=== PATIENT | female | born 1985 | race Caucasian/White ===

== ENCOUNTER 2021-09-22 11:05 | Emergency (ER) | payer BC, SELFPAY ==
--- NOTE | ~2021-09-22 | US_ITS ---
US OB <=14 wk fetus w TV DATE: 09/22/2021 12:14 INDICATION: Vaginal bleeding and cramping in 6 week gravid patient TECHNIQUE: Real-time imaging via transabdominal and transvaginal approaches COMPARISON: None FINDINGS: The uterus measures 9.6 and is height, 4.5 cm anteroposterior and 5.8 cm transverse dimensi on. The endometrial echo complex measures up to 18 mm AP dimension. No apparent intrauterine gestatio nal sac is noted. Right ovary 2.7 x 1.3 x 1.6 cm. Left ovary 2.3 x 1.5 x 1.5 cm. No pelvic mass lesion or abnormal pelv ic fluid collection is noted. IMPRESSION: No normal intrauterine gestational sac is identified. AP dimension of the central endometrial complex measures up to 18 mm, possibly due to bleeding/aborti on given the history of 6 weeks gestation. Differential diagnosis for prominent endometrial echo incl udes endometrial proliferation associated with an ectopic . Clinical correlation and perhaps follow-up beta hCG determinations and possible follow-up pelvic ultr asound may be of benefit Reviewed, dictated and finalized at [facility] Reviewed, dictated and finalized at [facility]. IMPRESSION: No normal intrauterine gestational sac is identified. AP dimension of the central endometrial complex measures up to 18 mm, possibly due to bleeding/ given the history of 6 weeks gestation. Differential d iagnosis for prominent endometrial echo includes endometrial proliferation asso ciated with an ectopic . Clinical correlation and perhaps follow-up beta hCG determinations and possible follow-up pelvic ultrasound may be of benefit
[2021-09-22 11:13] VITALS: BP 114/77; PULSE 77; RESP 14; TEMP 37.2; O2SAT 98
--- NOTE | 2021-09-22 11:25 | ED.GENADULT ---
HPI - General Adult General Chief complaint: Vaginal Bleeding Stated complaint: Vaginal Bleeding, 7 Weeks Preg Time Seen by Provider: 09/22/21 11:09 Source: patient, family and RN notes reviewed Mode of arrival: ambulatory Limitations: no limitations History of Present Illness HPI narrative: 36-year-old female that is G3, P2 who believes she is approximately 6 weeks presenting to the emergency department for evaluation of vaginal bleeding and lower abdominal cramping. Patient states that she has not yet had follow-up with her [facility], Dr Baugh. Patient first noticed the vaginal bleeding this morning. Patient does have associated lower abdominal cramping. Patient denies any prior abdominal surgical history. Patient denies any pain with urination. Related Data Home Medications Medication Instructions Recorded Confirmed paroxetine HCl 10 mg tablet 10 mg PO DAILY 07/23/21 07/23/21 Allergies Allergy/AdvReac Type Severity Reaction Status Date / Time amoxicillin Allergy Intermediate n/a Verified 07/23/21 16:08 strawberry Allergy Unknown Hives / Verified 07/23/21 16:08 Red Face Review of Systems Review of Systems: CONSTITUTIONAL: Denies fever, chills, or sweats. EYES: Denies visual changes, redness, or discharge. ENT: Denies rhinorrhea, congestion, sore throat, or otalgia. CARDIOVASCULAR: Denies chest pain, palpitations, or edema. RESPIRATORY: Denies cough or dyspnea. GASTROINTESTINAL: See HPI GENITOURINARY: See HPI SKIN: Denies rash or itching. MUSCULOSKELETAL: Denies back pain, joint pain, or myalgia. NEUROLOGIC: Denies headache, numbness, or weakness. [facility] Past Medical History Medical History Abnormal Pap smear of cervix 04/12/2018 +hpv, 06/12/2020 ascus-hpv Anemia Anxiety Depression Gestational hypertension History of breast problem Toxic shock syndrome at 16 Surgical History Surgical History History of bilateral breast reduction surgery 02/22/15 Family History Family History Grandparent Lung cancer paternal grandmother paternal grandfather Acute myocardial infarction maternal grandfather Father Skin cancer Social History Social History (Updated 07/23/21 @ 16:11 by Dejah Quinones, [facility]) Smoking status: Never smoker Alcohol intake: never Substance use: current Substance use type: marijuana Other substance usage details: occasional 1-2 times month EDIBLES Additional living arrangements comments: spouse Additional occupation/education comments: stay at home mother Gender identity (if verbalized by the patient): Female Sexual Orientation (if Verbalized by the Patient): Straight or Heterosexual Exam Narrative: APPEARANCE: Well appearing, no pain, no distress, well-nourished. HEAD: normocephalic, atraumatic. EYES: PERRLA/EOMI, conjunctivae clear. NOSE: Normal no drainage THROAT: Pharynx clear, no exudate. NECK: Supple. No adenopathy, no masses. RESPIRATORY: Airway patent, respirations nonlabored. Clear to auscultation bilaterally, no rales, rhonchi, wheezing. CARDIOVASCULAR: Regular rate and rhythm without murmurs rubs or gallops. ABDOMINAL: Mild suprapubic tenderness to palpation. MUSCULOSKELETAL: Moves all extremities. Strength/ROM intact, No edema, No calf tenderness. NEURO: Alert. Cranial nerves II through XII intact. Grossly intact SKIN: Warm, dry. Normal Color SPECULUM: Clots and blood within the vaginal vault. No active refilling. No hemorrhage. Course Course Emergency Course: Patient's pain is comparable to period cramping per the patient. Patient is declining any medications for pain control at this time. Patient's Rh factor is positive. No RhoGAM will be given. Patient was updated on the results of the ultrasound and [facility] [facility] consultation. All questions and c
[2021-09-22 11:42] LABS: Basophils Percent Auto 0.2 % (0.2-1.2); Eosinophils Absolute Auto 0.1 K/mm3 (0-0.3); Eosinophils Percent Auto 0.7 % (0-4.4); Hematocrit 38.1 % (37.0-47.0); Hemoglobin 12.6 g/dL (12.0-15.0); Immature Granulocyte Absolute 0.03 K/mm3 (0.00-0.031); Immature Granulocyte Percent A 0.4 % (0-0.5); Lymphocytes Absolute Auto 1.89 K/mm3 (0.9-3.2); Lymphocytes Percent Auto 22.6 % (18.3-44.2); Mean Corpuscular HGB Conc 33.1 g/dl (32-36); Mean Corpuscular Hemoglobin 32.3 pg (26-34); Mean Corpuscular Volume 97.7 fl (80-100); Mean Platelet Volume 9.2 fl (7.4-10.4); Monocytes Absolute Auto 0.5 K/mm3 (0.1-0.6); Monocytes Percent Auto 6.3 % (2.6-8.5); Neutrophils Absolute Auto 5.8 K/mm3 (1.3-6.7); Neutrophils Percent Auto 69.8 % (45.5-73.1); Platelet Count Result 332 k/mm3 (150-375); Red Cell Distribution Width 13.1 % (11.5-14.5); White Blood Count 8.4 K/mm3 (4.5-10.0)
--- NOTE | 2021-09-22 11:59 | PC.NURSE ---
pt in ultrasound.
[2021-09-22] MEDS: SODIUM CHLORIDE 0.9% IV 1,000 ML 999 ML IV CONT (12:13)
[2021-09-22 13:54] VITALS: BP 118/67; PULSE 82; RESP 13; O2SAT 98
== END 2021-09-22 13:57 | disposition home or self-care (01) ==
PROVIDERS: Physician Assistant; Emergency Provider Emergency Medicine; PCP Internal Medicine
DX: O20.9 Hemorrhage in early pregnancy, unspecified (principal); O99.341 Other mental disorders complicating pregnancy, first trimester; F32.A Depression, unspecified; F41.9 Anxiety disorder, unspecified; Z3A.01 Less than 8 weeks gestation of pregnancy; Z88.0 Allergy status to penicillin; Z91.018 Allergy to other foods; Z86.2 Personal history of diseases of the blood and blood-forming organs and certain disorders involving the immune mechanism
CPT/HCPCS: 36415; 76801; 76817; 84702; 85025; 85461; 96360; 99284; J7030

== ENCOUNTER 2021-09-26 10:38 | Outpatient (CLI) | payer BC, SELFPAY ==
[2021-09-26 11:23] LABS: Beta HCG Quantitative 164.59 mIU/ML
== END 2021-09-26 10:39 | disposition home or self-care (01) ==
LOC: ANHLAB 10:39
PROVIDERS: PCP Internal Medicine; Visit Provider Obstetrics & Gynecology
DX: O02.1 Missed abortion (principal); Z3A.00 Weeks of gestation of pregnancy not specified
CPT/HCPCS: 36415; 84702

== ENCOUNTER 2021-12-17 09:50 | Outpatient (CLI) | payer BC, SELFPAY | END 2021-12-17 09:51 | disposition home or self-care (01) | LOC: ANHLAB 09:51 | PROVIDERS: PCP Internal Medicine; Visit Provider Obstetrics & Gynecology | DX: N91.2 Amenorrhea, unspecified (principal) | CPT/HCPCS: 36415; 84702 ==

== ENCOUNTER 2021-12-19 11:14 | Outpatient (CLI) | payer BC, SELFPAY | END 2021-12-19 11:15 | disposition home or self-care (01) | PROVIDERS: Obstetrics & Gynecology; PCP Internal Medicine; Visit Provider Obstetrics & Gynecology | DX: O02.1 Missed abortion (principal); Z3A.00 Weeks of gestation of pregnancy not specified | CPT/HCPCS: 36415; 84702 ==

== ENCOUNTER 2022-02-06 10:21 | Outpatient (CLI) | payer BC, SELFPAY ==
[2022-02-06 10:55] LABS: Basophils Percent Auto 0.2 % (0.2-1.2); Eosinophils Absolute Auto 0.1 K/mm3 (0-0.3); Eosinophils Percent Auto 0.8 % (0-4.4); Hematocrit 38.4 % (37.0-47.0); Immature Granulocyte Absolute 0.02 K/mm3 (0.00-0.031); Immature Granulocyte Percent A 0.2 % (0-0.5); Lymphocytes Absolute Auto 1.86 K/mm3 (0.9-3.2); Lymphocytes Percent Auto 22.2 % (18.3-44.2); Mean Corpuscular HGB Conc 33.9 g/dl (32-36); Mean Corpuscular Volume 94.6 fl (80-100); Mean Platelet Volume 8.9 fl (7.4-10.4); Monocytes Absolute Auto 0.4 K/mm3 (0.1-0.6); Monocytes Percent Auto 5.1 % (2.6-8.5); Neutrophils Percent Auto 71.5 % (45.5-73.1); Platelet Count Result 311 k/mm3 (150-375); Red Blood Count 4.06 M/mm3 (4.2-5.4); Red Cell Distribution Width 12.9 % (11.5-14.5); White Blood Count 8.4 K/mm3 (4.5-10.0)
[2022-02-06 11:45] LABS: HIV 1/2 Ab P24 Ag Result Negative (Negative)
[2022-02-06 12:23] LABS: Hepatitis B Surface Antigen Negative (Negative); Rubella IgG Antibody 14.1 IU/ML
[2022-02-06 15:56] LABS: Rapid Plasma Reagin Non-Reactive (NonReactive)
== END 2022-02-06 10:22 | disposition home or self-care (01) ==
LOC: ANHLAB 10:25
PROVIDERS: PCP Internal Medicine; Visit Provider Obstetrics & Gynecology
DX: Z34.90 Encounter for supervision of normal pregnancy, unspecified, unspecified trimester (principal)
CPT/HCPCS: 36415; 85025; 86592; 86644; 86703; 86747; 86762; 86787; 86850; 86900; 86901; 87077; 87086; 87088; 87340; G0432

== ENCOUNTER 2022-06-24 09:03 | Outpatient (CLI) | payer BC, SELFPAY ==
[2022-06-24 10:33] LABS: Basophils Percent Auto 0.2 % (0.2-1.2); Eosinophils Percent Auto 0.3 % (0-4.4); Hematocrit 38.5 % (37.0-47.0); Hemoglobin 12.8 g/dL (12.0-15.0); Immature Granulocyte Absolute 0.05 K/mm3 (0.00-0.031); Immature Granulocyte Percent A 0.5 % (0-0.5); Lymphocytes Absolute Auto 1.75 K/mm3 (0.9-3.2); Lymphocytes Percent Auto 18.6 % (18.3-44.2); Mean Corpuscular HGB Conc 33.2 g/dl (32-36); Mean Corpuscular Hemoglobin 32.6 pg (26-34); Mean Platelet Volume 9.2 fl (7.4-10.4); Monocytes Absolute Auto 0.6 K/mm3 (0.1-0.6); Monocytes Percent Auto 6.7 % (2.6-8.5); Neutrophils Absolute Auto 6.9 K/mm3 (1.3-6.7); Neutrophils Percent Auto 73.7 % (45.5-73.1); Platelet Count Result 310 k/mm3 (150-375); Red Blood Count 3.93 M/mm3 (4.2-5.4); Red Cell Distribution Width 12.9 % (11.5-14.5); White Blood Count 9.4 K/mm3 (4.5-10.0)
[2022-06-24 10:42] LABS: Glucose 1 Hour PP 50gm Dose 101 mg/dL
[2022-06-24 11:24] LABS: HIV 1/2 Ab P24 Ag Result Negative (Negative)
== END 2022-06-24 09:04 | disposition home or self-care (01) ==
LOC: ANHLAB 09:04
PROVIDERS: PCP Internal Medicine; Visit Provider Obstetrics & Gynecology
DX: Z34.90 Encounter for supervision of normal pregnancy, unspecified, unspecified trimester (principal)
CPT/HCPCS: 36415; 82947; 85025; 86703; G0432

== ENCOUNTER 2022-08-21 17:59 | Inpatient (IN) | payer BC, SELFPAY ==
[2022-08-21] VITALS (9 sets, daily range): BP systolic 125–143; BP diastolic 80–95; PULSE 68–94; BMI 34.4
[2022-08-21 19:08] LABS: Basophils Percent Auto 0.2 % (0.2-1.2); Eosinophils Absolute Auto 0.1 K/mm3 (0-0.3); Eosinophils Percent Auto 0.7 % (0-4.4); Hemoglobin 13.2 g/dL (12.0-15.0); Immature Granulocyte Absolute 0.03 K/mm3 (0.00-0.031); Immature Granulocyte Percent A 0.3 % (0-0.5); Lymphocytes Absolute Auto 1.89 K/mm3 (0.9-3.2); Lymphocytes Percent Auto 21.1 % (18.3-44.2); Mean Corpuscular HGB Conc 34.7 g/dl (32-36); Mean Corpuscular Hemoglobin 33.7 pg (26-34); Mean Corpuscular Volume 96.9 fl (80-100); Mean Platelet Volume 9.8 fl (7.4-10.4); Monocytes Absolute Auto 0.7 K/mm3 (0.1-0.6); Monocytes Percent Auto 7.7 % (2.6-8.5); Neutrophils Absolute Auto 6.3 K/mm3 (1.3-6.7); Platelet Count Result 287 k/mm3 (150-375); Red Blood Count 3.92 M/mm3 (4.2-5.4); Red Cell Distribution Width 12.8 % (11.5-14.5)
--- NOTE | 2022-08-21 20:00 | PC.NURSE ---
2000: Pt has requested to wait an additional hour before having Cervidil placed.
[2022-08-21] MEDS: LACTATED RINGERS 1,000 ML 125 ML IV CONT (20:37)
[2022-08-21] MEDS: ceFAZolin 2 GM/D5W 50 ML 2 GM/50 ML BAG IVPB (20:38)
[2022-08-21] MEDS: OXYTOCIN 30 UNITS/NS 500 ML 30 UNITS/500 ML BAG IV CONT (21:35)
[2022-08-22] VITALS (146 sets, daily range): BP systolic 110–159; BP diastolic 61–118; PULSE 25–149; RESP 16–18; TEMP 36.1–37.4; O2SAT 79–100
--- NOTE | 2022-08-22 03:09 | WPDANESEPP ---
Anes - Eval Pre Procedure Procedure: Labor epidural Date/Time: 08/22/22 03:09 Surgeon: Lupis Preop Diagnosis: Abdominal pain with contractions Pre Op Diagnosis: IOL Patient Data Age: 37 Gender: F Height: 1.6 m Weight: 88.2 kg Last Vital Signs Temp 97.9 F 08/22/22 02:57 Pulse 76 08/22/22 03:01 BP 120/73 08/22/22 03:01 Allergies Allergy/AdvReac Type Severity Reaction Status Date / Time amoxicillin Allergy Intermediate n/a Verified 08/12/22 15:43 strawberry Allergy Unknown Hives / Verified 08/12/22 15:43 Red Face Home Medications Medication Instructions Recorded Confirmed Type paroxetine HCl 10 mg tablet (Paxil) 10 mg PO DAILY 07/23/21 08/12/22 History vitamins-iron fumarate 65 1 tablet PO DAILY 01/17/22 08/12/22 History mg iron-folic acid 1 mg tablet Laboratory Tests 08/21/22 08/21/22 08/21/22 18:34 18:34 18:34 WBC 9.0 K/mm3 K/mm3 (4.5-10.0) RBC 3.92 M/mm3 L M/mm3 (4.2-5.4) Hgb 13.2 g/dL g/dL (12.0-15.0) Hct 38.0 % % (37.0-47.0) MCV 96.9 fl fl (80-100) MCH 33.7 pg pg (26-34) MCHC 34.7 g/dl g/dl (32-36) RDW 12.8 % % (11.5-14.5) Plt Count 287 k/mm3 k/mm3 (150-375) MPV 9.8 fl fl (7.4-10.4) Immature Gran % (Auto) 0.3 % % (0-0.5) Neut % (Auto) 70.0 % % (45.5-73.1) Lymph % (Auto) 21.1 % % (18.3-44.2) [place] % (Auto) 7.7 % % (2.6-8.5) Eos % (Auto) 0.7 % % (0-4.4) Baso % (Auto) 0.2 % % (0.2-1.2) Lymph # (Auto) 1.89 K/mm3 K/mm3 (0.9-3.2) [place] # (Auto) 0.7 K/mm3 H K/mm3 (0.1-0.6) Eos # (Auto) 0.1 K/mm3 K/mm3 (0-0.3) Baso # (Auto) 0.0 K/mm3 K/mm3 (0.0-0.1) Abs Immat Gran (auto) 0.03 K/mm3 K/mm3 (0.00-0.031) Absolute Neuts (auto) 6.3 K/mm3 K/mm3 (1.3-6.7) Absolute Nucleated RBC 0.0 K/mm3 K/mm3 (0.0-0.012) Nucleated RBC % 0.0 % % (0.0-0.2) RPR Pending Blood Type O Positive Antibody Screen Negative : gestational age HCG: positive Patient hx anesthesia problems: none Family hx anesthesia problems: none Results Review: All pre-operative results and documents have been reviewed as part of the pre-operative evaluation. [facility] Past Medical History Medical History Abnormal Pap smear of cervix 04/12/2018 +hpv, 06/12/2020 ascus-hpv Anemia Anxiety Depression Gestational hypertension History of breast problem Toxic shock syndrome at 16 Surgical History Surgical History History of bilateral breast reduction surgery 02/22/15 Family History Family History Grandparent Lung cancer paternal grandmother paternal grandfather Acute myocardial infarction maternal grandfather Father Skin cancer Social History Social History Smoking status: Never smoker Alcohol intake: never Substance use: never Substance use type: marijuana Other substance usage details: occasional 1-2 times month EDIBLES Lack of Transportation: No Lack of Food: Never True Current Housing: I Have Housing Concerned About Future Housing: No Difficulty Paying Gas/Electric Bills: No Difficulty Paying for Meds: No Currently Unemployed: No Education: Master's Degree or Higher Difficulty w/ Childcare or Family Care: No Living arrangements: other Additional living arrangements comments: spouse Occupation/Education: other Additional occupation/education comments: stay at home mother Gender identity (if verbalized by the patient): Female Sexual Orientation (if Verbalized by the Patient): Straight or Heterose
[2022-08-22] MEDS: ceFAZolin 1 GM/NS 50 ML 1 GM/50 ML BAG IVPB (05:55)
--- NOTE | 2022-08-22 10:35 | WPDHPUPDATE1 ---
History and Physical Update Update Date/Time: 08/22/22 10:35 History and Physical has been reviewed, including an updated exam of the patient. There are NO changes in the patient's condition. Risks, benefits, and alternatives have been discussed and questions answered. Patient agrees to proceed with procedure.
--- NOTE | 2022-08-22 10:35 | WPDOBADMIT ---
Obstetrics - Admit Note Admission Note: record reviewed. No pertinent additions to the history and/or any subsequent changes in the physical findings that are not consistent with the expected course of the were found. Additions to the history and/or subsequent changes in the physical findings follow. None.
--- NOTE | 2022-08-22 10:35 | PM.OBPRVD ---
OB - Delivery Note Procedure Induction method: Per Cervidil Protocol Delivery augmentation: Rupture of Membranes and Pitocin Delivery monitor: External FHT and External Uterine Route of delivery: Episiotomy description: None Laceration Description: None Specimen: No Quantitative Blood Loss (ml): 300 Anesthesia type: Epidural Disposition: Floor Complications: None Narrative: Patient was prepped and draped in usual manner this procedure. Maternal expulsive efforts readily delivered vertex over intact perineum, followed by shoulder and rest of baby. Nuchal cord had been noticed and reduced readily. Cord was clamped and cut placenta delivered spontaneously. Uterus was well contracted with minimal bleeding. Cervix vagina vulva were inspected with no lacerations or tears. Immediate post operative condition of mother baby both excellent. Baby Weeks of gestation at delivery: 39 gender: Male Weight (pounds): 7 Weight (ounces): 13 presentation: vertex Placenta delivery description: Spontaneous Cord Vessel Description: 3 Vessels, Nuchal Cord and Reduced score one minute: 8 score five minutes: 9 AMG Delivery Billing Delivery Delivery: Delivery Charge
[2022-08-22] MEDS: OXYTOCIN 30 UNITS/NS 500 ML 30 UNITS/500 ML BAG 125 UNITS IV CONT (10:57)
[2022-08-22 11:20] LABS: Rapid Plasma Reagin Non-Reactive (NonReactive)
[2022-08-22] MEDS: IBUPROFEN 600 MG TABLET PO ×3 (11:26→23:00)
[2022-08-23 04:30] VITALS: BP 126/77; PULSE 84; RESP 18; TEMP 36.8
[2022-08-23] MEDS: IBUPROFEN 600 MG TABLET PO ×3 (04:35→23:30)
[2022-08-23 05:30] LABS: Hematocrit 35.7 % (37.0-47.0)
[2022-08-23 08:24] VITALS: BP 119/82; PULSE 76; RESP 18; TEMP 36.6; O2SAT 99
[2022-08-23] MEDS: PARoxetine 10 MG TABLET PO (09:39)
[2022-08-23] MEDS: ACETAMINOPHEN 325 MG TABLET 650 MG PO (09:39)
[2022-08-23] MEDS: MULTIVIT/MIN/PREN/FOL AC/IRON TABLET 1 TAB PO (09:39)
--- NOTE | 2022-08-23 11:43 | PM.OBDSVD ---
DS: Admitting Diagnosis Discharge Date 08/24/2022 Admitting Diagnosis DS: Discharge Diagnosis Discharge Diagnosis (1) , delivered: Code(s): O80 - Encounter for full-term uncomplicated delivery Status: Acute OB - DS: Summary OB Procedures : None OB Procedures Intrapartum: Spontaneous Vag Delivery OB Procedures: : None Time Spent with Patient Time attestation: Total time spent providing and/or coordinating discharge services: DS: Data Data Completed and Pending Labs on day of discharge: Labs from last 24 hours 08/23/22 04:34 Hgb 12.0 Hct 35.7 L Discharge Plan Discharge Discharging Clinician: Brendon Baugh Patient Disposition: Home, Self-Care Activity: as tolerated Diet: as tolerated Patient Instructions: Antibiotic Form Stand Alone Forms: General Discharge Information Follow-up/Referrals: Brendon Baugh MD [Physician] - 3 Weeks Discharge Medications: New ibuprofen 600 mg Tablet 600 mg PO Q6H PRN (Reason: Cramping) Qty: 30 0RF paroxetine HCl 10 mg Tablet 10 mg PO QAM Qty: 90 0RF Continued paroxetine HCl [Paxil] 10 mg tablet 10 mg PO DAILY vit-iron fum-folic ac 65 mg iron- 1 mg tablet 1 tablet PO DAILY Date of admission: 08/21/22 17:59 Primary Care Provider: Balbina Dunham Admitting Provider: Brendon Baugh Attending physician on admission: Brendon Baugh Condition: Stable
--- NOTE | 2022-08-23 16:52 | WPDANLDPN2 ---
Anes-Prog Note L&D Date/Time: 08/23/22 16:52 Comfortable throughout: labor and delivery Neuraxial method: epidural Epidural/Spinal procedure site: clean & non-tender Neuro status: Neuro function grossly intact. Cardiovascular status: normal Respiratory status: normal Airway patency: baseline Mental status: baseline Post-Op hydration status: normal Vital Signs: Last Vital Signs Temp 36.6 C 08/23/22 08:24 Pulse 76 08/23/22 08:24 Resp 18 08/23/22 08:24 BP 119/82 08/23/22 08:24 Pulse Ox 99 08/23/22 08:24 O2 Del Method Room Air 08/23/22 08:24 Pain score (VAS): 2/10 Post-procedural complaints: none Patient feedback: Patient satisfied with anesthetic care.
[2022-08-23 19:00] VITALS: BP 118/76; PULSE 82; RESP 18; TEMP 36.6
[2022-08-24] MEDS: MULTIVIT/MIN/PREN/FOL AC/IRON TABLET 1 TAB PO (09:48)
[2022-08-24 09:49] VITALS: BP 134/82; PULSE 93; RESP 18; TEMP 37.2; O2SAT 100
[2022-08-24] MEDS: IBUPROFEN 600 MG TABLET PO (09:49)
[2022-08-24] MEDS: PARoxetine 10 MG TABLET PO (09:49)
[2022-08-27 11:38] VITALS: BP 133/90; PULSE 89; RESP 18; TEMP 37.1; O2SAT 98
== END 2022-08-24 14:02 | disposition home or self-care (01) | DRG 807 ==
LOC: ANHLDR 08-22 08:49 → ANHOB2 08-22 14:06
PROVIDERS: Admitting Provider Obstetrics & Gynecology; PCP Internal Medicine; Visit Provider Obstetrics & Gynecology
DX: O99.824 Streptococcus B carrier state complicating childbirth (principal); Z37.0 Single live birth; O69.81X0 Labor and delivery complicated by cord around neck, without compression, not applicable or unspecified; Z3A.39 39 weeks gestation of pregnancy
CPT/HCPCS: 36415; 85014; 85018; 85025; 86592; 86850; 86900; 86901; A9270; J0690; J2590; J2795; J7120